=== PATIENT | female | born 1950 | race Caucasian/White ===

== ENCOUNTER 2017-06-27 10:55 | Observation (INO) | payer MEDICARE, OTHER ==
[~2017-06-27] VITALS: Ht 154.9 cm; Wt 63.5 kg
[~2017-06-27 10:55] MED LIST: LOSARTAN POTASS25 MG PO; VITAMIN D32000 UNI1 PO
--- NOTE | 2017-06-27 15:55 | NUR ---
06/27/17 1555 Anisha Weeks 1548 PT ARRIVED IN PACU SLEEPY C/O ABD PAIN. ABD SOFT.
--- NOTE | 2017-06-27 17:26 | NUR ---
CALL LIGHT W/IN REACH. SPOUSE @ BS.
--- NOTE | 2017-06-27 18:14 | NUR ---
LUISANA 173: XRAY HERE FOR PORTABLE KUB LEFT SIDE DOWN. PATIENT POSITIONS HERSELF FOR THAT IMAGE AND DOES SO WELL. CALL TO DR. CAIN LETTING HIM KNOW THE XRAY WAS TAKEN. 1809: CALL TO WORKFORCE DEVELOPMENT SPECIALIST AND HE REPORTS PATIENT CAN BE TRANSFERRED TO ROOM 119. CALL TO XRAY AND THEY REPORT THE RADIOLOGIST HAS 1 HOUR TO READ A STAT XRAY. ALL RELAYED TO DR. CAIN.
--- NOTE | 2017-06-27 18:32 | NUR ---
PATIENT RECEIVED FROM DAY SURGERY, PATIENT WITH COLONOSCOPY TODAY AND HAVING ABDOMINAL PAIN AND MILD DISTENSION. PATIENT ON RA, VITAL SIGNS STABLE, PATIENT HYPERTENSIVE, DID NOT TAKE BLOOD PRESSURE MEDICATION THIS MORNING. LR INFUSING ON STRAIGHT TUBING, AWAITING XRAY RESULTS. DENIES NAUSEA. PATIENT RATES PAIN 5/10.
--- NOTE | 2017-06-27 19:01 | NUR ---
BEDSIDE REPORT RECEIVED FROM JERNOIMO JORDAN AND JERONIMO BERKOWITZ. PT LYING IN BED, AT BEDSIDE. PT DENIES NAUSEA. NPO AT THIS TIME, NO REQUESTS. CALL LIGHT IN REACH. LR INFUSING TKO.
--- NOTE | 2017-06-27 19:59 | NUR ---
PT REQUESTING JELLO, ICE WATER, DISCUSSED DIET ORDER. PT UP AMBULATING IN ROOM, GAIT STEADY, UNMEASURED VOID IN TOILET, URINE HAT NOW IN PLACE. PT RATES PAIN 7/10 IN ABD, HOLDING ABDOMEN, REQUESTING PAIN MEDICATION. REMAINS IN ROOM. CALL LIGHT IN REACH.
--- NOTE | 2017-06-27 20:34 | NUR ---
PT ASSESSMENT COMPLETE, PT CONTINUES TO C/O 08/22 ABD PAIN, SOFT, DISTENDED, TENDER IN LUQ WITH PALPATION. PRN MORPHINE 4 MG ADMINISTERED AT THIS TIME. PT HAD 50 ML EMESIS AFTER CONSUMING JELLO, PHONE CALL TO MD, TELEPHONE ORDER FOR 12.5MG PHENERGEN IV Q6H NAUSEA/VOMITTING REPEATED BACK. BOWEL TONES ACTIVE X 4. D5LR INFUSING WNL. CALL LIGHT IN REACH, PT DENIES NAUSEA AT THIS TIME.
--- NOTE | 2017-06-27 22:56 | NUR ---
CHECKED ON PT, PT LYING IN BED, STATES HAS BEEN PASSING GAS, "FEEL A LOT BETTER". PT RATES PAIN 4/10, "TENDER". DENIES NAUSEA. IVF INFUSING WNL. CALL LIGHT IN REACH. LIGHTS OFF IN ROOM.
--- NOTE | 2017-06-28 01:30 | NUR ---
PT ASSESSMENT COMPLETE. PT RATES PAIN IN ABD 4/10, BOWEL TONES PRESENT, HYPOACTIVE. PT CONTINUES TO PASS FLATUS, ABDOMEN SOFT, TENDER THROUGHOUT W PALPATION. SBA TO RESTROOM FOR VOID. LUNGS CLEAR THROUGHOUT ALL LOBES. IVF INFUSING WNL. CALL LIGHT IN REACH, LIGHTS OFF IN ROOM.
--- NOTE | 2017-06-28 04:40 | NUR ---
PT APPEARS TO BE SLEEPING, BREATHING NON-LABORED, LIGHTS OFF IN ROOM. LYING ON LEFT SIDE, IVF INFUSING.
--- NOTE | 2017-06-28 05:36 | NUR ---
PT RECEIVED PRN MORPHINE X 1 FOR PAIN AT START OF SHIFT, IVF INFUSING WNL THROUGHOUT SHIFT. ONE EPISODE OF EMESIS, HAS DENIED NAUSEA THROUGHOUT REMAINDER OF SHIFT. HAS USED CALL LIGHT APPROPRIATELY FOR SBA TO RESTROOM FOR VOIDS, PASSING FLATUS. ABDOMEN SOFT, TENDER W PALPATION, BOWEL TONES ACTIVE. TOLERATING ORAL INTAKE OF WATER, ADVANCING TOLERATED.
--- NOTE | 2017-06-28 06:34 | NUR ---
UPDATED DR. CAIN ON LOW GRADE FEVER 99.9 THIS AM, NAUSEA RESOLVED PAIN CONTROL LATER IN SHIFT, OKAY TO ADVANCE PT TO REGULAR DIET AT THIS TIME.
--- NOTE | 2017-06-28 07:20 | NUR ---
BEDSIDE HANDOFF REPORT RECIVED FROM UTILITY SALES AND SERVICE MANAGER RN. PT SLEEPING LEFT UNDISTURBED.
--- NOTE | 2017-06-28 07:36 | NUR ---
DR. CAIN NOTIFIED OF HCT THIS AM REQUESTED. TELEPHONE ORDER FOR CT SCAN OF ABD. PT NOTIFIED OF PLAN, SALINE LOCKED TO TRANSPORTATION. PT ON ROOM AIR, LUNG SOUNDS CLEAR, DENIES SOB. PT DENIES NAUSEA. PAIN TO ABD CONTINUES, RATES 4/10, TENDER TO PALPATE LOWER ABD AND LEFT SIDE. CMS INTACT. PT DENIES OTHER NEEDS AT THIS TIME.
--- NOTE | 2017-06-28 11:56 | NUR ---
PT ASSISTED TO WALK IN AMBRIZ. PT DENIES NAUSEA. PT STATES PAIN TOLERABLE AT THIS TIME. PT SITTING IN CHAIR. VOIDING QS. DENIES OTHER NEEDS AT THIS TIME.
[2017-06-28] MEDS ORDERED: CIPRO500 MG PO (12:51)
[2017-06-28] MEDS ORDERED: FLAGYL250 MG PO (12:51)
--- NOTE | 2017-06-28 13:13 | OR ---
[facility] [address], [place] [address] Signed DATE OF OPERATION: 06/27/2017 SURGEON: Melaine Cain MD PREOPERATIVE DIAGNOSES: 1. Colon screening. 2. Daily alcohol use (4-5 drinks). POSTOPERATIVE DIAGNOSIS: Sigmoid and left-sided diverticulosis, (extensive). PROCEDURE: Total colonoscopy to cecum (prolonged complicated difficult). ANESTHESIA: Intravenous sedation propofol, Krystian Dempsey CRNA. INDICATION: This 67-year-old white woman is a patient of Vega Carrera MD, from [place], [place]. She is referred for screening colonoscopy having never undergone colonoscopy in the past. She has had episodes suggestive of diverticulitis from a clinical standpoint. She has had no blood per rectum, constipation, or current diarrhea. She does have rather a high daily alcohol intake, drinking 4-5 alcoholic drinks nightly, however. She is admitted to undergo screening colonoscopy, understands the risks of bleeding, infection, and perforation. Propofol infusional sedation will be given, given her alcohol use, and high probability for tolerance. FINDINGS: The prep was good. Complete colonoscopy was undertaken of the cecum. There were numerous diverticula of the sigmoid and left colon, and passage through the area was rather prolonged, complicated, and difficult, but was accomplished safely. There was no evidence of polyps throughout the colon. Mild inflammation of the rectum was noted, probably bowel prep related. There was one diverticulum at approximately 35 cm that had inflammatory changes at its opening, which is marked with clips and submucosal dye on the unlikely possibility this could become a future problem. DESCRIPTION OF PROCEDURE: The patient was brought to the endoscopy suite and placed in lateral decubitus position, given intravenous sedation by the pumper hand with propofol infusional technique. Electronically Signed By: MELANIE CAIN MD 06/28/17 1313 PATIENT NAME: VÍCTOR MORALES OPERATIVE REPORT DATE OF : 52 REPORT #: [id number] PHYSICIAN: MELANIE CAIN MD PCP: VEGA CARRERA MD REPORT IS CONFIDENTIAL AND NOT TO BE RELEASED WITHOUT AUTHORIZATION [facility] [address], [place] [address] Signed Digital rectal examination was normal. An Olympus video colonoscope was passed in the rectum and manipulated into the sigmoid. Marked angulation deformity precluded easy passage through the sigmoid. After a fair amount of time with irrigation as a primary source of insufflation, as well as some air, it was deemed appropriate to change the scope to a different one as the tension on the scope was inadequate to allow for negotiation of the sigmoid. The scope was then removed and a new scope was applied, and passed to the same area. With various manipulations, the scope was carefully insinuated between the folds noting marked good angulation deformity, numerous diverticula and so forth. Ultimately, the sigmoid was passed, and passage beyond to the cecum was rather straightforward. The ileocecal valve, and appendiceal orifice were normal. Photographs were taken. The scope was carefully withdrawn from that point and examination undertaken showing no sign of polyps or colitis, but did confirm left-sided profound diverticular changes. In the mid sigmoid, an area of an inflamed diverticulum was noted. This was interrogated more fully, and though not actively bleeding or a problem. Two clips were applied across the orifice of the area to krystian it for the future, and also should a KUB in the near future be required, as well as injection of Endo Krystian tattoo dye beneath the mucosa. Further withdrawal of scope showed no other abnormalities. The rectum had mild inflammation. Biopsy was obtained after retroflexed view confirmed internal hemorrhoids. The scope was removed, and the patient was taken to recovery room in good condition. CONCLUSION DIAGNOSIS: Extensive diverticular changes of sigmoid and left colon, mild proctitis probably bowel prep related. PLAN: Recommend repeat colonoscopy in 10 years. Also high-fiber diet. She will return to the ongoing care of Darlin Giron [place]. MD VLADISLAV Quispe/SETHL /[id number] cc: Darlin Giron [place] Electronically Signed By: MELANIE CAIN MD 06/28/17 1313 PATIENT NAME: VÍCTOR MORALES OPERATIVE REPORT DATE OF : 52 REPORT #: [id number] PHYSICIAN: MELANIE CAIN MD PCP: VEGA CARRERA MD REPORT IS CONFIDENTIAL AND NOT TO BE RELEASED WITHOUT AUTHORIZATION [facility] [address], [place] [address] Signed Copies: ~ Electronically Signed By: MELANIE CAIN MD 06/28/17 1313 PATIENT NAME: VÍCTOR MORALES [facility] OPERATIVE REPORT DATE OF : 52 REPORT #: [id number] PHYSICIAN: MELANIE CAIN MD PCP: VEGA CARRERA MD REPORT IS CONFIDENTIAL AND NOT TO BE RELEASED WITHOUT AUTHORIZATION
== END 2017-06-28 13:25 | disposition home or self-care (01) ==
LOC: MS 10:55 → OPS 10:55 → DS 10:55 → OPS 12:00 → DS 12:00 → MS 18:30 → OPS 19:54 → MS 19:55
PROVIDERS: ADMIT Surgery
PROC: 3E0H8GC Introduction of Other Therapeutic Substance into Lower GI, Via Natural or Artificial Opening Endoscopic (ICD-10-PCS; principal; 2017-06-27 12:00)
DX: K57.30 Diverticulosis of large intestine without perforation or abscess without bleeding (principal); K62.89 Other specified diseases of anus and rectum; R10.9 Unspecified abdominal pain; R14.0 Abdominal distension (gaseous); I10 Essential (primary) hypertension; Z79.899 Other long term (current) drug therapy; Z88.8 Allergy status to other drugs, medicaments and biological substances; Z72.89 Other problems related to lifestyle
CPT/HCPCS: 36415; 74018; 74177; 80048; 85025; 88305; 96374; G0378; J2270; J2550; J2704; J7120; Q9967

== ENCOUNTER 2022-02-04 06:30 | Day surgery (SDC) | payer MEDICARE ==
[~2022-02-04] VITALS: Ht 154.9 cm; Wt 58.2 kg
--- NOTE | ~2022-02-04 | OR ---
[facility] [address] [facility] [place], [place] [address] Draft DATE OF OPERATION: 02/04/2022 SURGEON: Critsi Austin MD PREOPERATIVE DIAGNOSIS: Left small finger mass. POSTOPERATIVE DIAGNOSIS: Left small finger mass. PROCEDURE: Excision of mass, left small finger. URBAN PLANNING TEACHER: None. ANESTHESIA: General with finger block. BLOOD LOSS: None. TOURNIQUET TIME: 15 minutes with a finger tourniquet. SPECIMEN: Mass was sent to Pathology. BRIEF HISTORY: Víctor is a 71-year-old female with progressive dorsal swelling of her hand. This was felt to be either a mucous cyst or an epidermal inclusion cyst and she had some puncture wounds. Risks and benefits of operative treatment were discussed with her and she elected to proceed. Once consent was obtained, she was taken to the operating room. After adequate anesthesia, she was placed on the operating table. All downside pressure points were well padded and a hand table was brought in. The arm was prepped and draped in a standard sterile fashion. The finger tip of the was used to roll up on the fingers with a finger tourniquet. A 1.5 cm dorsal incision was then made overlying the mass centered over the PIP joint. This was carried through the skin very carefully. No cystic structures were encountered. There was diffuse soft tissue swelling with what appeared to be a mucoid soft tissue mass. This was excised. This tracked down PATIENT NAME: VÍCTOR MORALES [facility] OPERATIVE REPORT DATE OF : 52 REPORT #: [id number] PHYSICIAN: CRISTI AUSTIN MD PCP: CAROLYN MIRANDA MD REPORT IS CONFIDENTIAL AND NOT TO BE RELEASED WITHOUT AUTHORIZATION [address] [place] [address] Draft into the joint and arthrotomy was performed. More specimen was removed from the joint. There was a little bit of bony erosion on the dorsal aspect of the proximal phalanx. The specimen was then sent off to Pathology. The wound was copiously irrigated with normal saline. The arthrotomy was closed with 4-0 Supramid. The incision was closed with 3-0 nylon and was dressed with Allevyn and tube gauze. She tolerated the procedure well. All sponge, needle, and instrument counts were correct. Cristi Austin MD BA/SETHL /[id number] Copies: ~ PATIENT NAME: VÍCTOR MORALES OPERATIVE REPORT DATE OF : 52 REPORT #: [id number] PHYSICIAN: CRISTI AUSTIN MD PCP: CAROLYN MIRANDA MD REPORT IS CONFIDENTIAL AND NOT TO BE RELEASED WITHOUT AUTHORIZATION
[~2022-02-04 06:30] MED LIST changes: +CIPRO500 MG PO; +CRESTOR10 MG PO; +FLAGYL250 MG PO; +HYDROCHLOROTH12.5 MG PO; +TURMERIC500 M3 PO
[2022-02-04] MEDS ORDERED: HYDROCODON-ACE1 EA10 PO (09:12)
--- NOTE | 2022-02-04 09:15 | NUR ---
02/04/22 0915 Jesica Dietrich 0910 PATIENT ARRIVES TO PACU AWAKE BUT DROWSY. RESP EVEN AND UNLABORED, MASK AT 6 LITERS. PATIENT DENIES PAIN OR NAUSEA. 0915 PATIENT AWAKE BUT DROWSY. CONTINUES TO DENY PAIN OR NAUSEA. RESP EVEN AND UNLABORED, MASK OFF.
--- NOTE | 2022-02-04 09:38 | NUR ---
PT IS BACK TO FROM PACU. SHE HAS NO COMPLAINTS OF PAIN. SHE IS A/O X4. CALL LIGHT WITHIN REACH. TOLERATING FLUIDS. NO ADDITIONAL NEEDS OR CONCERNS.
--- NOTE | 2022-02-04 09:43 | NUR ---
PT'S IS CALLED TO NOTIFY HIM THAT PT WILL BE READY TO DISCHARGE AT 1030. HE STATES HE WILL BE HERE TO GET HER AT THAT TIME.
--- NOTE | 2022-02-04 10:40 | NUR ---
LE 1025: PT AND ARE GIVEN VERBAL AND WRITTEN DC INSTRUCTIONS. THEY BOTH VERBALIZE UNDERSTANDING. NO QUESTIONS AT THIS TIME. PT IS TAKEN TO PERSONAL VEHICLE VIA WC, WHERE SHE IS ABLE TO TRANSFER HERSELF WITHOUT ISSUES.
--- NOTE | 2022-02-04 11:38 | NUR ---
PT ALERT, ORIENTED AND SUPPORTED BY HER WHO HAS JUST STEPPED OUT FOR A MOMENT. SHE IS READY TO GET HER FINGER USE BACK. ALL QUESTIONS ASKED WERE ANSWERED. PT REQUESTED PRAYER, WILL FOLLOW
== END 2022-02-04 10:30 | disposition home or self-care (01) ==
LOC: DS 06:30
PROVIDERS: ATTEND Specialist
PROC: 0JBK0ZZ Excision of Left Hand Subcutaneous Tissue and Fascia, Open Approach (ICD-10-PCS; principal; 2022-02-04 08:15)
DX: M67.442 Ganglion, left hand (principal); Z91.040 Latex allergy status; I10 Essential (primary) hypertension
CPT/HCPCS: J0690; J1100; J1885; J2250; J2405; J2704; J2765; J3010; J7121